=== PATIENT | male | born 1945 | race Caucasian/White ===

== ENCOUNTER 2017-06-13 14:50 | Inpatient (IN) ==
[2017-06-13 16:39] LABS: Basophils # 0.1 10*3/uL (0.0-0.2); Basophils % 0.6 % (0.0-0.8); Eosinophils # 0.2 10*3/uL (0.0-0.87); Eosinophils % 2.6 % (0.00-10.9); Hematocrit 42.6 VOL% (42.0-52.0); Hemoglobin 13.5 GM/DL (14.0-18.0); Immature Granulocytes % 0.4 %; Immature Granulocytes Absolute 0.03 #; Lymphocytes # 2.1 10*3/uL (1.4-4.0); Lymphocytes % 24.8 % (21.2-54.2); Mean Corpuscular HGB Conc 31.7 GM/DL (32-36); Mean Corpuscular Hemoglobin 28 PG (27-34); Mean Corpuscular Volume 89.7 FL (87-102); Mean Platelet Volume 10.1 FL (9.6-12.0); Monocytes # 0.9 10*3/uL (0.11-0.8); Monocytes % 10.9 % (1.7-12.7); Neutrophils # 5.2 10*3/uL (1.4-7.4); Neutrophils % 60.7 % (38.7-73.9); Platelet Count 209 T/CUMM (130-400); Red Blood Count 4.75 MC/CUMM (3.8-5.5); Red Cell Distribution Width 13.5 % (9.3-17.3); White Blood Count 8.5 T/CUMM (4-12)
[2017-06-13 17:13] LABS: Alanine Aminotransferase 33 U/L (16-61); Albumin 3.8 G/DL (3.4-5.0); Alkaline Phosphatase 81 U/L (45-117); Aspartate Amino Transferase 29 U/L (0-37); Blood Urea Nitrogen 16 MG/DL (7-18); Calcium 8.9 MG/DL (8.5-10.1); Glucose 90 MG/DL (74-106); Osmolality,Calculated 281.3 MOS/KG (273-304); Potassium 4.3 MMOL/L (3.5-5.1); Sodium 141 MMOL/L (136-145)
[2017-06-13 17:14] LABS: Troponin I Only 0.134 NG/ML (0.00-0.045)
[2017-06-13] MEDS ORDERED: ASPIRIN 325 MG TABLET PO STA (17:15)
[2017-06-13] MEDS ORDERED: ENOXAPARIN 100 MG/ML SYRINGE SUBCUT STA (17:15)
[2017-06-13] MEDS ORDERED: MORPHINE 2 MG/1 ML SYRINGE IV PRN (17:26)
[2017-06-13] MEDS ORDERED: ONDANSETRON 4 MG/2 ML VIAL IV PRN (17:26)
[2017-06-13] MEDS ORDERED: ACETAMINOPHEN 325 MG TABLET PO PRN (17:26)
[2017-06-13] MEDS ORDERED: ASPIRIN 325 MG TABLET ONE (17:53)
[2017-06-13] MEDS ORDERED: ENOXAPARIN 100 MG/ML SYRINGE SUBCUT ONE (17:53)
[2017-06-13] MEDS: DOCUSATE SODIUM 100 MG CAPSULE PO SCH (20:50)
[2017-06-14] MEDS: DOCUSATE SODIUM 100 MG CAPSULE PO SCH (08:53)
[2017-06-14] MEDS: PANTOPRAZOLE 40 MG TABLET PO SCH (08:53)
[2017-06-14 09:23] LABS: Troponin I Only 0.136 NG/ML (0.00-0.045)
[2017-06-14 11:58] LABS: Troponin I Only 0.121 NG/ML (0.00-0.045)
[2017-06-14 12:02] LABS: Risk Ratio 5.21; VLDL CHOLESTEROL 23.2 MG/DL
[2017-06-14 15:22] LABS: Troponin I Only 0.104 NG/ML (0.00-0.045)
[2017-06-14] MEDS: ATORVASTATIN 20 MG TABLET PO SCH (21:40)
[2017-06-15 05:25] LABS: Basophils # 0.1 10*3/uL (0.0-0.2); Basophils % 0.6 % (0.0-0.8); Eosinophils # 0.3 10*3/uL (0.0-0.87); Eosinophils % 3.4 % (0.00-10.9); Hematocrit 40.7 VOL% (42.0-52.0); Immature Granulocytes % 0.1 %; Immature Granulocytes Absolute 0.01 #; Lymphocytes % 25.8 % (21.2-54.2); Mean Corpuscular HGB Conc 31.9 GM/DL (32-36); Mean Corpuscular Hemoglobin 28 PG (27-34); Mean Corpuscular Volume 89.1 FL (87-102); Monocytes # 0.9 10*3/uL (0.11-0.8); Monocytes % 11.6 % (1.7-12.7); Neutrophils # 4.5 10*3/uL (1.4-7.4); Neutrophils % 58.5 % (38.7-73.9); Platelet Count 199 T/CUMM (130-400); Red Blood Count 4.57 MC/CUMM (3.8-5.5); Red Cell Distribution Width 13.6 % (9.3-17.3); White Blood Count 7.7 T/CUMM (4-12)
[2017-06-15 05:56] LABS: Calcium 8.6 MG/DL (8.5-10.1); Osmolality,Calculated 285.1 MOS/KG (273-304)
[2017-06-15] MEDS ORDERED: diphenhydrAMINE CAP 25 MG CAPSULE PO ONE (08:42)
[2017-06-15] MEDS ORDERED: DIAZEPAM 5 MG TABLET PO ONE (08:42)
[2017-06-15] MEDS: SODIUM CHLORIDE 0.45% 1,000 ML IV SCH ×2 (09:25→18:34)
[2017-06-15] MEDS ORDERED: HEPARIN/NACL 0.9% 2 UNITS/ML 2,000 ML IV ONE (09:44)
[2017-06-15] MEDS: PANTOPRAZOLE 40 MG TABLET PO SCH (09:47)
[2017-06-15] MEDS: ASPIRIN EC 81 MG TABLET PO SCH (09:48)
[2017-06-15] MEDS ORDERED: LIDOCAINE 1% 20 ML VIAL ONE (10:01)
[2017-06-15] MEDS ORDERED: HYDROmorphone 2 MG/1 ML VIAL ONE (10:06)
[2017-06-15] MEDS ORDERED: MIDAZOLAM 2 MG/2 ML VIAL ONE (10:06)
[2017-06-15] MEDS ORDERED: HEPARIN/NACL 0.9% 2 UNITS/ML 1,000 ML IV ONE (10:13)
[2017-06-15] MEDS ORDERED: BIVALIRUDIN 250 MG VIAL IV ONE (10:41)
[2017-06-15] MEDS ORDERED: NITROGLYCERIN DRIP 50 MG/250 ML BOTTLE IV ONE (10:51)
[2017-06-15] MEDS ORDERED: TICAGRELOR 90 MG TABLET ONE (11:20)
[2017-06-15] MEDS ORDERED: ZALEPLON 5 MG CAPSULE PO PRN (11:24)
[2017-06-15] MEDS ORDERED: ONDANSETRON 4 MG/2 ML VIAL IV PRN (11:24)
[2017-06-15] MEDS ORDERED: NITROGLYCERIN SL 0.4 MG TABLET SL PRN (11:24)
[2017-06-15] MEDS ORDERED: NITROGLYCERIN DRIP 50 MG/250 ML BOTTLE IV SCH (11:45)
[2017-06-15] MEDS: SODIUM CHLORIDE 0.9% 1,000 ML IV SCH ×2 (12:00→22:15)
[2017-06-15] MEDS ORDERED: MORPHINE 2 MG/1 ML SYRINGE IM PRN (12:40)
[2017-06-15] MEDS ORDERED: MORPHINE 10 MG/1 ML VIAL ONE (12:41)
[2017-06-15] MEDS: TICAGRELOR 90 MG TABLET PO SCH (20:33)
[2017-06-15] MEDS: ATORVASTATIN 20 MG TABLET PO SCH (20:33)
[2017-06-16 06:19] LABS: Basophils % 0.3 % (0.0-0.8); Eosinophils # 0.2 10*3/uL (0.0-0.87); Eosinophils % 1.7 % (0.00-10.9); Hematocrit 35.5 VOL% (42.0-52.0); Hemoglobin 11.7 GM/DL (14.0-18.0); Immature Granulocytes % 0.3 %; Immature Granulocytes Absolute 0.03 #; Lymphocytes # 1.5 10*3/uL (1.4-4.0); Lymphocytes % 15.8 % (21.2-54.2); Mean Corpuscular Hemoglobin 29 PG (27-34); Mean Corpuscular Volume 87.9 FL (87-102); Mean Platelet Volume 10.1 FL (9.6-12.0); Monocytes # 1.1 10*3/uL (0.11-0.8); Monocytes % 11.9 % (1.7-12.7); Neutrophils # 6.5 10*3/uL (1.4-7.4); Platelet Count 170 T/CUMM (130-400); Red Blood Count 4.04 MC/CUMM (3.8-5.5); Red Cell Distribution Width 13.7 % (9.3-17.3); White Blood Count 9.3 T/CUMM (4-12)
[2017-06-16 06:45] LABS: Calcium 8.1 MG/DL (8.5-10.1); Osmolality,Calculated 282.3 MOS/KG (273-304); Potassium 4.2 MMOL/L (3.5-5.1)
[2017-06-16 06:47] LABS: CKMB % 15.3 %
[2017-06-16 06:53] LABS: Troponin I Only 9.18 NG/ML (0.00-0.045)
[2017-06-16] MEDS: ASPIRIN EC 81 MG TABLET PO SCH (08:59)
[2017-06-16] MEDS: TICAGRELOR 90 MG TABLET PO SCH (08:59)
[2017-06-16] MEDS: PANTOPRAZOLE 40 MG TABLET PO SCH (08:59)
[2017-06-16] MEDS: SODIUM CHLORIDE 0.9% 1,000 ML IV SCH (09:45)
[2017-06-16] MEDS ORDERED: ATORVASTATIN 20 MG TABLET PO SCH (09:56)
[2017-06-16] MEDS ORDERED: LISINOPRIL 5 MG TABLET PO SCH (10:00)
[2017-06-16 17:05] VITALS: BP 116/60
== END 2017-06-16 17:45 | disposition home or self-care (01) | DRG 247 ==
LOC: N.ED 14:50 → N.EDINP 17:26 → N.TELEN 18:42 → N.CC 06-15 13:29
PROVIDERS: ADMIT Family Medicine; ATTEND Family Medicine
PROC: CLCCHCL (ICD-10-PCS; 2017-06-15 11:15)